=== PATIENT | female | born 1985 | race Two or more races ===

== ENCOUNTER → 2021-01-08 | Outpatient (CLI) | payer MEDICAID ==
[2021-01-08 14:14] LABS: Basophils # (auto) 0 10 ^3/uL (0-0.2); Basophils % (auto) 0.2 % (0.0-2.0); Eosinophils # (auto) 0.1 10 ^3/uL (0-0.8); Hematocrit 36.2 % (36.0-46.0); Hemoglobin 12.1 g/dL (12.2-16.2); Lymphocytes # (auto) 2.1 10 ^3/uL (0.4-5.4); Lymphocytes % (auto) 27.1 % (10.0-50.0); Mean Corpuscular Hemoglobin 30.2 pg (28.0-32.0); Mean Corpuscular Hgb Conc. 33.4 g/dL (32.0-36.0); Mean Corpuscular Volume 90.5 fL (80.0-100.0); Monocytes # (auto) 0.4 10 ^3/uL (0-1.3); Monocytes % (auto) 5.1 % (0.0-12.0); Neutrophils # (auto) 5.1 10 ^3/uL (1.6-8.6); Neutrophils % (auto) 66.6 % (37.0-80.0); Nucleated Red Blood Cells % 0.1 %; Platelet Count (auto) 273 10^3/uL (140-450); Red Cell Distribution Width 14.4 % (11.8-14.3); White Blood Cell 7.7 10^3/uL (4.4-10.8)
== END | disposition home or self-care (01) ==
LOC: LAB 09:24
PROVIDERS: ATTEND Obstetrics & Gynecology
DX: O99.810 Abnormal glucose complicating pregnancy (principal); Z11.3 Encounter for screening for infections with a predominantly sexual mode of transmission; Z3A.28 28 weeks gestation of pregnancy
CPT/HCPCS: 36415; 81220; 82951; 84155; 84165; 85025; 85049

== ENCOUNTER 2021-02-20 15:17 | Observation (INO) | payer MEDICAID ==
[2021-02-20] MEDS ORDERED: PREN-96 PO (16:39)
== END 2021-02-20 16:45 | disposition home or self-care (01) ==
LOC: LDRP 15:17
PROVIDERS: ADMIT Obstetrics & Gynecology; ATTEND Obstetrics & Gynecology
DX: O36.63X0 Maternal care for excessive fetal growth, third trimester, not applicable or unspecified (principal); Z3A.35 35 weeks gestation of pregnancy
CPT/HCPCS: 59025; 76818; 81002; 94760; G0378

== ENCOUNTER → 2021-02-25 | Outpatient (CLI) | payer MEDICAID ==
[~2021-02-25] MED LIST: PREN-96 PO
[2021-02-25 12:15] LABS: Basophils # (auto) 0 10 ^3/uL (0-0.2); Basophils % (auto) 0.2 % (0.0-2.0); Eosinophils # (auto) 0 10 ^3/uL (0-0.8); Eosinophils % (auto) 0.6 % (0.0-7.0); Hematocrit 34.3 % (36.0-46.0); Hemoglobin 11.6 g/dL (12.2-16.2); Lymphocytes # (auto) 2.3 10 ^3/uL (0.4-5.4); Lymphocytes % (auto) 30.9 % (10.0-50.0); Mean Corpuscular Hemoglobin 29.9 pg (28.0-32.0); Mean Corpuscular Hgb Conc. 33.7 g/dL (32.0-36.0); Mean Corpuscular Volume 88.8 fL (80.0-100.0); Monocytes # (auto) 0.7 10 ^3/uL (0-1.3); Neutrophils # (auto) 4.3 10 ^3/uL (1.6-8.6); Neutrophils % (auto) 59.3 % (37.0-80.0); Red Blood Cells 3.87 10^6/uL (4.0-5.20); White Blood Cell 7.3 10^3/uL (4.4-10.8)
[2021-02-26 07:06] LABS: RPR Non Reactive (Non Reactive)
== END | disposition home or self-care (01) ==
LOC: LAB 11:18
PROVIDERS: ATTEND Obstetrics & Gynecology
DX: O09.93 Supervision of high risk pregnancy, unspecified, third trimester (principal); Z3A.36 36 weeks gestation of pregnancy
CPT/HCPCS: 36415; 85025; 86592

== ENCOUNTER 2021-02-27 15:14 | Observation (INO) | payer MEDICAID ==
[~2021-02-27] VITALS: Ht 160 cm; Wt 83.0 kg
== END 2021-02-27 16:44 | disposition home or self-care (01) ==
LOC: LDRP 15:14
PROVIDERS: ADMIT Obstetrics & Gynecology; ATTEND Obstetrics & Gynecology
DX: O36.63X0 Maternal care for excessive fetal growth, third trimester, not applicable or unspecified (principal); Z3A.36 36 weeks gestation of pregnancy
CPT/HCPCS: 59025; 76818; 81002; G0378

== ENCOUNTER 2021-03-06 07:52 | Observation (INO) | payer MEDICAID | END 2021-03-06 14:07 | disposition home or self-care (01) | LOC: LDRP 13:15 | PROVIDERS: ADMIT Obstetrics & Gynecology; ATTEND Obstetrics & Gynecology | DX: O36.63X0 Maternal care for excessive fetal growth, third trimester, not applicable or unspecified (principal); Z3A.37 37 weeks gestation of pregnancy | CPT/HCPCS: 59025; 76818; 81002; 94760; G0378 ==

== ENCOUNTER 2021-03-13 13:05 | Observation (INO) | payer MEDICAID | END 2021-03-13 15:36 | disposition home or self-care (01) | LOC: LDRP 13:05 | PROVIDERS: ADMIT Obstetrics & Gynecology; ATTEND Obstetrics & Gynecology | DX: O36.63X0 Maternal care for excessive fetal growth, third trimester, not applicable or unspecified (principal); Z3A.38 38 weeks gestation of pregnancy | CPT/HCPCS: 59025; 76818; 81002; G0378 ==

== ENCOUNTER 2021-03-20 09:08 | Observation (INO) | payer MEDICAID | END 2021-03-20 15:49 | disposition home or self-care (01) | LOC: LDRP 14:00 | PROVIDERS: ADMIT Obstetrics & Gynecology; ATTEND Obstetrics & Gynecology | DX: O36.63X0 Maternal care for excessive fetal growth, third trimester, not applicable or unspecified (principal); Z3A.39 39 weeks gestation of pregnancy | CPT/HCPCS: 59025; 76818; 81002; 94760; G0378 ==

== ENCOUNTER 2021-03-21 04:24 | Inpatient (IN) | payer MEDICAID ==
[~2021-03-21] VITALS: Ht 160 cm; Wt 84.8 kg
[2021-03-21] VITALS (9 sets, daily range): BP systolic 99–114; BP diastolic 49–66
[2021-03-21] MEDS ORDERED: BUTORPHANOL TARTRATE 2 MG/1 ML VIAL IV PRN ×2 (06:15)
[2021-03-21] MEDS ORDERED: LIDOCAINE 2%HCL (LOCAL ANESTH.) INJ 20ML MDV IJ PRN (06:15)
[2021-03-21] MEDS ORDERED: WITCH HAZEL-GLYCERIN PAD TOP PRN (06:15)
[2021-03-21] MEDS ORDERED: PHISODERM TOP SOLN 240ML BTL TOP PRN (06:15)
[2021-03-21] MEDS ORDERED: PROMETHAZINE HCL 25 MG/ML 1ML IV PRN (06:15)
[2021-03-21] MEDS ORDERED: DERMOPLAST 60ML BOTTLE TOP PRN (06:15)
[2021-03-21 06:38] LABS: Amphetamine Screen, Urine NEGATIVE (NEGATIVE); Barbiturate Scree,Urine NEGATIVE (NEGATIVE); Benzodiazephine Screen, Urine NEGATIVE (NEGATIVE); Cannabinoid Screen, Urine NEGATIVE (NEGATIVE); Cocaine Screen, Urine NEGATIVE (NEGATIVE); Opiate Scree,Urine NEGATIVE (NEGATIVE); Phencyclidine Screen, Urine NEGATIVE (NEGATIVE)
[2021-03-21 06:44] LABS: Urine Bacteria NONE SEEN /hpf (None Seen); Urine Blood 2+ /uL (Negative); Urine Mucus FEW (None Seen); Urine Specific Gravity 1.014 (1.001-1.035); Urine WBC 2 /hpf (0 - 5)
[2021-03-21 06:47] LABS: Basophils # (auto) 0 10 ^3/uL (0-0.2); Basophils % (auto) 0.3 % (0.0-2.0); Eosinophils # (auto) 0 10 ^3/uL (0-0.8); Eosinophils % (auto) 0.5 % (0.0-7.0); Hematocrit 39.5 % (36.0-46.0); Lymphocytes # (auto) 1.9 10 ^3/uL (0.4-5.4); Lymphocytes % (auto) 27.8 % (10.0-50.0); Mean Corpuscular Hemoglobin 29.4 pg (28.0-32.0); Mean Corpuscular Volume 88.9 fL (80.0-100.0); Monocytes # (auto) 0.5 10 ^3/uL (0-1.3); Monocytes % (auto) 7.2 % (0.0-12.0); Neutrophils # (auto) 4.4 10 ^3/uL (1.6-8.6); Neutrophils % (auto) 64.2 % (37.0-80.0); Nucleated Red Blood Cells % 0.1 %; Red Blood Cells 4.44 10^6/uL (4.0-5.20); Red Cell Distribution Width 15.2 % (11.8-14.3); White Blood Cell 6.8 10^3/uL (4.4-10.8)
[2021-03-21 07:08] LABS: Albumin 2.1 g/dL (3.4-5.0); Calcium 8.5 mg/dL (8.5-10.1); INR 0.93 (0.9-1.15); Partial Thromboplastin Time 27.6 sec (23.6-33.0)
[2021-03-21 07:12] LABS: BUN/Creatinine Ratio 4.9; Bilirubin, Total 0.4 mg/dL (0.2-1.0); Total Protein 6.6 g/dL (6.4-8.2)
[2021-03-21] MEDS ORDERED: ceFAZolin 1GM/50ML 50 ML IV ONE (07:15)
[2021-03-21] MEDS: LACTATED RINGER'S 1,000 ML IV SCH ×3 (07:27→22:00)
[2021-03-21] MEDS ORDERED: MORPHINE SULF PF 2 MG/2 ML SYRG ONE (11:27)
[2021-03-21] MEDS ORDERED: fentaNYL CITRATE 100 MCG/2 ML VL ONE (11:27)
[2021-03-21] MEDS ORDERED: ePHEDrine SULFATE 50 MG/ML AMP ONE (11:28)
[2021-03-21] MEDS ORDERED: KETOROLAC TROMETH 30 MG/ML 1ML VIAL ONE (11:28)
[2021-03-21] MEDS ORDERED: ONDANSETRON HCL 4 MG/2 ML VIAL ONE (11:28)
[2021-03-21] MEDS ORDERED: GLYCOPYRROLATE 0.2 MG/ML 1ML VIAL ONE (11:28)
[2021-03-21] MEDS ORDERED: oxyTOCIN 10 UNIT/ML 10ML VIAL ONE (11:28)
[2021-03-21] MEDS ORDERED: TETRACAINE 1% INJ 2 ML VIAL IJ ONE (11:38)
[2021-03-21] MEDS ORDERED: SUCCINYLCHOLINE CHLORIDE 20 MG/ML 10ML VIAL IV ONE (11:39)
[2021-03-21] MEDS ORDERED: GUM (CHEWING) 1 GUM CHEW CHEW ONE (13:00)
[2021-03-21] MEDS ORDERED: ONDANSETRON HCL 4 MG/2 ML VIAL IV PRN ×3 (13:00→13:15)
[2021-03-21] MEDS ORDERED: ceFAZolin 1GM/50ML 50 ML IV SCH ×2 (13:00→20:00)
[2021-03-21] MEDS ORDERED: LACT. RINGERS/OXYTOCIN 20UNITS 1,000 ML IV ONE (13:00)
[2021-03-21] MEDS ORDERED: KETOROLAC TROMETH 30 MG/ML 1ML VIAL IV PRN (13:15)
[2021-03-21] MEDS ORDERED: DexAMETHasone SOD PHOS 10MG/1ML VIAL INJ IV PRN (13:15)
[2021-03-21] MEDS ORDERED: diphenhdrAMINE HCL 50 MG/1 ML VL IV PRN (13:15)
[2021-03-21] MEDS: MORPHINE SULFATE INJECTION 2 MG/ML SYRG IV PRN (17:59)
[2021-03-21 21:42] LABS: Basophils # (auto) 0 10 ^3/uL (0-0.2); Basophils % (auto) 0.2 % (0.0-2.0); Eosinophils # (auto) 0 10 ^3/uL (0-0.8); Eosinophils % (auto) 0.4 % (0.0-7.0); Hematocrit 38.1 % (36.0-46.0); Hemoglobin 12.2 g/dL (12.2-16.2); Lymphocytes # (auto) 1.6 10 ^3/uL (0.4-5.4); Lymphocytes % (auto) 19.1 % (10.0-50.0); Mean Corpuscular Hemoglobin 28.7 pg (28.0-32.0); Mean Corpuscular Volume 89.9 fL (80.0-100.0); Monocytes # (auto) 0.5 10 ^3/uL (0-1.3); Monocytes % (auto) 5.7 % (0.0-12.0); Neutrophils # (auto) 6.4 10 ^3/uL (1.6-8.6); Neutrophils % (auto) 74.6 % (37.0-80.0); Red Blood Cells 4.24 10^6/uL (4.0-5.20); Red Cell Distribution Width 15.4 % (11.8-14.3); White Blood Cell 8.5 10^3/uL (4.4-10.8)
[2021-03-22] VITALS (11 sets, daily range): BP systolic 99–120; BP diastolic 55–77
[2021-03-22] MEDS: MORPHINE SULFATE INJECTION 2 MG/ML SYRG IV PRN (00:18)
[2021-03-22] MEDS: ceFAZolin 1GM/50ML 50 ML IV SCH ×2 (05:10→06:00)
[2021-03-22] MEDS: LACTATED RINGER'S 1,000 ML IV SCH (05:11)
[2021-03-22 06:06] LABS: RPR Non Reactive (Non Reactive)
[2021-03-22 07:40] LABS: Basophils # (auto) 0 10 ^3/uL (0-0.2); Basophils % (auto) 0.2 % (0.0-2.0); Eosinophils # (auto) 0 10 ^3/uL (0-0.8); Eosinophils % (auto) 0.5 % (0.0-7.0); Lymphocytes # (auto) 1.4 10 ^3/uL (0.4-5.4); Lymphocytes % (auto) 18.2 % (10.0-50.0); Mean Corpuscular Hemoglobin 28.8 pg (28.0-32.0); Mean Corpuscular Hgb Conc. 32.4 g/dL (32.0-36.0); Mean Corpuscular Volume 88.9 fL (80.0-100.0); Monocytes # (auto) 0.5 10 ^3/uL (0-1.3); Monocytes % (auto) 6.1 % (0.0-12.0); Neutrophils # (auto) 5.8 10 ^3/uL (1.6-8.6); Nucleated Red Blood Cells % 0.1 %; Red Blood Cells 4.16 10^6/uL (4.0-5.20); Red Cell Distribution Width 15.1 % (11.8-14.3); White Blood Cell 7.8 10^3/uL (4.4-10.8)
[2021-03-22] MEDS ORDERED: ACETAMINOPHEN IV 1000 MG/100ML (10MG/ML) IV PRN (07:45)
[2021-03-22] MEDS ORDERED: LACTATED RINGER'S 1,000 ML IV SCH (13:45)
[2021-03-22] MEDS ORDERED: BISACODYL 10 MG RECT SUPP PR PRN (13:45)
[2021-03-22] MEDS ORDERED: MORPHINE SULFATE INJECTION 2 MG/ML SYRG IV PRN (14:00)
[2021-03-22] MEDS ORDERED: ceFAZolin 1GM/50ML 50 ML IV SCH (14:00)
[2021-03-22] MEDS: HYDROcodone-ACET 5/325MG TAB PO PRN ×2 (14:06→21:36)
[2021-03-22] MEDS: IBUPROFEN 800 MG TAB PO PRN (16:59)
[2021-03-22] MEDS: DOCUSATE SOD 100 MG CAP PO SCH (21:37)
[2021-03-23 02:30] VITALS: BP 102/64
[2021-03-23] MEDS: HYDROcodone-ACET 5/325MG TAB PO PRN ×2 (03:19→18:24)
[2021-03-23 07:00] VITALS: BP 119/69
[2021-03-23] MEDS: IBUPROFEN 800 MG TAB PO PRN ×2 (09:17→20:46)
[2021-03-23] MEDS: DOCUSATE SOD 100 MG CAP PO SCH ×2 (09:17→22:13)
[2021-03-23] MEDS ORDERED: DOCUSATE CALCIUM 240 MG CAP PO SCH (10:00)
[2021-03-23 11:00] VITALS: BP 110/72
[2021-03-23 15:00] VITALS: BP 105/73
[2021-03-23 19:26] VITALS: BP 127/74
[2021-03-23 23:15] VITALS: BP 113/71
[2021-03-24] MEDS: HYDROcodone-ACET 5/325MG TAB PO PRN (01:12)
[2021-03-24 03:10] VITALS: BP 105/58
[2021-03-24] MEDS: IBUPROFEN 800 MG TAB PO PRN (05:29)
[2021-03-24 07:00] VITALS: BP 107/65
[2021-03-25 05:07] LABS: Rubella Antibodies, IgG 1.16 index (Immune >0.99)
== END 2021-03-24 08:44 | disposition home or self-care (01) | DRG 539 ==
LOC: LDRP 04:24 → OBSVTOIN 06:08 → LDRP 06:31
PROVIDERS: ADMIT Obstetrics & Gynecology; ATTEND Obstetrics & Gynecology
PROC: 0UL70CZ Occlusion of Bilateral Fallopian Tubes with Extraluminal Device, Open Approach (ICD-10-PCS; 2021-03-21)
PROC: 10D00Z1 Extraction of Products of Conception, Low, Open Approach (ICD-10-PCS; principal; 2021-03-21 11:53)
DX: O32.1XX0 Maternal care for breech presentation, not applicable or unspecified (principal); D25.9 Leiomyoma of uterus, unspecified; O32.0XX0 Maternal care for unstable lie, not applicable or unspecified; O34.13 Maternal care for benign tumor of corpus uteri, third trimester; Z20.822 Contact with and (suspected) exposure to COVID-19; Z37.0 Single live birth; Z30.2 Encounter for sterilization; Z3A.39 39 weeks gestation of pregnancy
CPT/HCPCS: 36415; 59025; 76805; 80053; 80307; 81001; 84112; 85025; 85610; 85730; 86592; 86762; 86850; 86900; 86901; 87426; 94760; 94762; 96360; 96361; 96375; G0378; J0131; J0330; J0690; J1885; J2405; J2590